=== PATIENT | male | born 2005 | race Caucasian/White ===

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

== ENCOUNTER 2024-05-14 11:58 | Emergency (ER) | payer MEDICAID, OTHER ==
[~2024-05-14] VITALS: Ht 180.3 cm; Wt 75.7 kg
[2024-05-14 12:02] VITALS: BP 118/73; PULSE 82; RESP 18; TEMP 98.6; O2SAT 99
== END 2024-05-14 13:17 | disposition home or self-care (01) ==
LOC: MED 11:58
DX: R07.89 Other chest pain (principal); R06.02 Shortness of breath; R42 Dizziness and giddiness; M25.519 Pain in unspecified shoulder; R10.9 Unspecified abdominal pain
CPT/HCPCS: 71045; 93005; 99283